=== PATIENT | male | born 1965 | race Caucasian/White ===

== ENCOUNTER 2016-11-23 21:19 | Emergency (ER) | payer BC ==
[~2016-11-23] VITALS: Ht 188 cm; Wt 111.8 kg
[~2016-11-23 21:19] MED LIST: BAYER CHEWABLE81 MG PO; BENADRYL25 MG PO; MOTRIN400 MG PO; MOTRIN800 MG PO; PERCOCET 5/31 TABLET PO; TRIBENZOR 40-11 EAC1 PO; ZOFRAN4 MG PO
[2016-11-23] MEDS ORDERED: NAPROSYN500 MG PO (22:52)
[2016-11-23] MEDS ORDERED: NORCO 5/3251 TABLET PO (22:52)
[2016-11-23 23:43] VITALS: BP 130/85
== END 2016-11-23 23:45 | disposition home or self-care (01) ==
LOC: EME 21:19
DX: S42.002A Fracture of unspecified part of left clavicle, initial encounter for closed fracture (principal); S70.212A Abrasion, left hip, initial encounter; I10 Essential (primary) hypertension; W10.9XXA Fall (on) (from) unspecified stairs and steps, initial encounter; Z23 Encounter for immunization
CPT/HCPCS: 71020; 73000; 99281; 99284